=== PATIENT | female | born 1965 | race Caucasian/White ===

== ENCOUNTER 2018-08-02 09:16 | Outpatient (REF) | payer BC, SELFPAY ==
[2018-08-02 13:51] LABS: HCT 42.4 % (36.0-46.0); HGB 14.2 g/dL (12.0-15.5); Mean Corp. HGB Concentration 33.5 g/dL (32.0-36.0); Mean Corpuscular Hemoglobin 28.9 pg (27.0-33.0); Mean Corpuscular Volume 86.4 fL (80-95); Mean Platelet Volume 12.7 fL (8.0-11.0); Platelet Count 245 x1000/uL (130-400); RBC 4.91 m/cumm (4.00-5.20); RBC Distribution Width 13.9 % (11.7-14.6); White Blood Cell Count 5.74 k/cumm (4.4-10.8)
[2018-08-02 14:03] LABS: ALT 37 U/L (12-78); AST 18 U/L (15-37); Albumin 4.1 g/dL (3.4-5.0); Alkaline Phosphatase 99 U/L (46-116); Anion Gap 10.6 mmol/L (3-11); BUN 16 mg/dL (7-18); Bilirubin, Total 0.4 mg/dL (0.2-1.0); CO2 27.4 mmol/L (21.0-32.0); CREATININE 0.82 mg/dL (0.55-1.02); Calcium 9.1 mg/dL (8.5-10.1); Chloride 103 mmol/L (98-107); Cholesterol 177 mg/dL (50-200); Glucose 100 mg/dL (70-100); HDL Cholesterol 59 mg/dL (40-60); LDL CHOLESTEROL 109 mg/dL (<100); Potassium 3.9 mmol/L (3.5-5.1); Sodium 141 mmol/L (136-145); Total Protein 7.8 g/dL (6.4-8.2); Triglyceride 54 mg/dL (30-150)
== END 2018-08-02 09:36 ==
LOC: NCHCN 09:16
PROVIDERS: Visit Provider Family Medicine
DX: Z00.00 Encounter for general adult medical examination without abnormal findings (principal); Z13.0 Encounter for screening for diseases of the blood and blood-forming organs and certain disorders involving the immune mechanism; Z13.228 Encounter for screening for other metabolic disorders; Z13.220 Encounter for screening for lipoid disorders
CPT/HCPCS: 80053; 80061; 83721; 85027

== ENCOUNTER 2018-09-08 00:35 | Outpatient (CLI) | payer BC, SELFPAY ==
--- NOTE | 2018-09-08 16:09 | DI.MAMMO_ITS ---
SYMPTOM/DIAGNOSIS: SCREENING, Z12.31, FIBROCYSTIC CHANGES, N60.19 MAMMOGRAMS: Mammograms were interpreted according to the usual protocol including computer analysis with CAD system, tomosynthesis and C view imaging. The breasts are of moderate density with fairly symmetrical distribution of fibroglandular tissue. No dominant mass or clumped microcalcification is identified in either breast. The current examination is compared with previous examinations including 03/2016 and there has been no gross interval change in appearance in comparison with the previous studies. CONCLUSION: No specific evidence of malignancy at this time. Routine screening examinations are suggested at yearly intervals in this age group according to the ACS/ACR guidelines. Category 1. Breast density, category B. MQSA ASSESSMENT OF FINDINGS: Negative. Category 1. Patient will receive a letter notifying them of these results. BI-RADS category B. There are scattered areas of fibroglandular density.
== END 2018-09-08 00:55 ==
PROVIDERS: PCP Internal Medicine; Visit Provider Family Medicine
DX: Z12.31 Encounter for screening mammogram for malignant neoplasm of breast (principal); N60.11 Diffuse cystic mastopathy of right breast; N60.12 Diffuse cystic mastopathy of left breast
CPT/HCPCS: 77063; 77067

== ENCOUNTER 2020-09-04 09:04 | Outpatient (REF) | payer OTHER, SELFPAY ==
[2020-09-04 22:21] LABS: ALT 33 U/L (14-59); AST 20 U/L (15-37); Albumin 3.9 g/dL (3.4-5.0); Alkaline Phosphatase 91 U/L (46-116); BUN 18 mg/dL (7-18); Bilirubin, Total 0.3 mg/dL (0.2-1.0); CREATININE 0.78 mg/dL (0.55-1.02); Calcium 9.1 mg/dL (8.5-10.1); Calculated LDL 112 mg/dL (<100); Chloride 103 mmol/L (98-107); Cholesterol 178 mg/dL (<200); Glucose 87 mg/dL (74-106); HDL Cholesterol 49 mg/dL (40-60); Potassium 4.1 mmol/L (3.5-5.1); Sodium 140 mmol/L (136-145); Total Protein 7.4 g/dL (6.4-8.2); Triglyceride 86 mg/dL (<150)
== END 2020-09-04 09:24 ==
LOC: NCHCN 09:04
PROVIDERS: PCP Internal Medicine; Visit Provider Family Medicine
DX: Z00.00 Encounter for general adult medical examination without abnormal findings (principal); Z13.220 Encounter for screening for lipoid disorders; I10 Essential (primary) hypertension
CPT/HCPCS: 80053; 80061

== ENCOUNTER 2020-10-03 01:15 | Outpatient (CLI) | payer OTHER, SELFPAY ==
--- NOTE | 2020-10-03 | DI.MAMMO_ITS ---
EXAM: MG MAMMO SCREENING CLINICAL HISTORY: SCREENING, Z12.31 TECHNIQUE: Bilateral full field digital CC and MLO mammographic images were obtained with 3D tomosyn thesis and utilizing computer aided detection (CAD). COMPARISON: Available for comparison. FINDINGS: Masses/Architectural Distortion: None seen. Microcalcifications: No suspicious pleomorphic-type are seen. Skin Thickening/Nipple Retraction: None. IMPRESSION: 1. No significant interval change with no specific features of malignancy noted. 2. Unless there is more urgent need, screening mammography is recommended, as per [employer] guidelines. BI-RADS Category 1 - Negative Breast Density - Category B - Scattered areas of fibroglandular density A negative radiographic report should not delay biopsy if a dominant or clinically suspicious mass is present. Up to ten percent of cancers are not identified on mammography. A negative report may reinforce clinical impression. Adenosis and dense breasts may obscure an underlying neoplasm. False positive reports average 6 to 10%. Patient will receive a letter notifying them of these results.
== END 2020-10-03 01:35 ==
PROVIDERS: PCP Internal Medicine; Visit Provider Family Medicine
DX: Z12.31 Encounter for screening mammogram for malignant neoplasm of breast (principal)
CPT/HCPCS: 77063; 77067

== ENCOUNTER 2021-10-20 12:37 | Outpatient (REF) | payer OTHER, SELFPAY ==
--- NOTE | 2021-10-20 10:45 | PAPFT_PTH ---
PATIENT: Katey Lima LOC: [facility]#:[id number] AGE/SX: 56/F ROOM: RE10/20/[address]: Tosha Villegas : 1965 BED: DIS: 10/20/2021 SPEC #: [id number] RECD: 10/20/21 18:40 STATUS: RENUKA REQ #: [id number] ARSH: 10/20/21 10:[address]: Tosha Villegas DEPT: [facility] Cytology RECD BY: Zoe Castorena ENTERED: 10/20/21 18:40 SP TYPE: PAPFT OTHR DR: Heron Ray Tissues: 1 - CX/ENDOCX FOR PAP SMEARS Procedures: PAP THIN PREP/UVM Screening HPV DNA PROBE Comments: [id number]
== END 2021-10-20 12:38 | disposition home or self-care (01) ==
LOC: NCHCN 12:37
PROVIDERS: PCP Internal Medicine; Visit Provider Family Medicine
DX: Z12.4 Encounter for screening for malignant neoplasm of cervix (principal); Z11.51 Encounter for screening for human papillomavirus (HPV)
CPT/HCPCS: 88142; 87624

== ENCOUNTER 2021-12-02 19:50 | Outpatient (REF) | payer BC, SELFPAY ==
[2021-12-02 22:17] LABS: Abs Immature Grans 0.02 10^3/uL (0.0-0.06); Absolute Basophil Count 0.05 10^3/uL (0.0-0.2); Absolute Eosinophil Count 0.17 10^3/uL (0.0-0.7); Absolute Lymphocyte Count 1.73 10^3/uL (1.2-3.4); Absolute Monocyte Count 0.48 10^3/uL (0.1-0.8); Absolute Neutrophil Count 4.47 10^3/uL (1.2-6.7); Basophils % 0.7; Eosinophils % 2.5; HGB 14.5 g/dL (11.2-15.7); Immature Grans % 0.3; MCH 28.5 pg (27.0-33.0); MCHC 32.2 % (32.0-36.0); MCV 88.4 fL (80-95); MPV 12.7 fL (8.0-11.0); Monocytes % 6.9; Neutrophils % 64.6; Nucleated RBC 0 %; Platelet Count 225 10^3/uL (130-400); RBC 5.09 10^6/uL (3.93-5.22); RDW 13.2 % (11.7-14.6); RDW-SD 43.4 fL; WBC 6.92 10^3/uL (4.4-10.8)
[2021-12-02 22:50] LABS: ALT 34 U/L (14-59); AST 20 U/L (15-37); Albumin 4.3 g/dL (3.4-5.0); Alkaline Phosphatase 95 U/L (46-116); Anion Gap 12.1 mmol/L (3-11); BUN 11 mg/dL (7-18); Bilirubin, Total 0.3 mg/dL (0.2-1.0); CO2 25.9 mmol/L (21.0-32.0); CREATININE 0.8 mg/dL (0.55-1.02); Calcium 9.4 mg/dL (8.5-10.1); Chloride 104 mmol/L (98-107); Ferritin 100 ng/mL (8-252); Glucose 80 mg/dL (74-106); Potassium 3.9 mmol/L (3.5-5.1); Sodium 142 mmol/L (136-145); TSH (W/Ref FT4) 2.48 uIU/mL (0.36-3.74); Total Protein 7.9 g/dL (6.4-8.2)
[2021-12-02 23:01] LABS: Iron 46 ug/dL (50-170); Total Iron Binding Capacity 298 ug/dL (250-450); Transferrin Sat 15 % (15-50)
== END 2021-12-02 19:51 | disposition home or self-care (01) ==
LOC: NCHCN 19:50
PROVIDERS: PCP Internal Medicine; Visit Provider Nurse Practitioner Family
DX: K30 Functional dyspepsia (principal); R06.83 Snoring; R42 Dizziness and giddiness; G44.209 Tension-type headache, unspecified, not intractable
CPT/HCPCS: 80053; 82728; 83540; 83550; 84443; 85025

== ENCOUNTER 2022-12-10 09:41 | Outpatient (REF) | payer BC, SELFPAY ==
[2022-12-10 15:01] LABS: Anion Gap 6.9 mmol/L (3-11); BUN 16 mg/dL (7-18); CO2 31.1 mmol/L (21.0-32.0); CREATININE 0.8 mg/dL (0.55-1.02); Calcium 9.5 mg/dL (8.5-10.1); Chloride 106 mmol/L (98-107); Estimated GFR 86.42 (mL/min/1.73m2); Glucose 98 mg/dL (74-106); Magnesium 2.1 mg/dL (1.8-2.4); Potassium 4.2 mmol/L (3.5-5.1); Sodium 144 mmol/L (136-145)
[2022-12-10 16:05] LABS: Hemoglobin A1C 5.6 % (<5.7)
[2022-12-10 16:07] LABS: Calculated LDL 109 mg/dL (<100); Cholesterol 173 mg/dL (<200); HDL Cholesterol 56 mg/dL (40-60); Triglyceride 43 mg/dL (<150); Vitamin B12 600 pg/mL (193-986)
== END 2022-12-10 09:42 | disposition home or self-care (01) ==
LOC: NCHCN 09:41
PROVIDERS: PCP Internal Medicine; Visit Provider Family Medicine
DX: Z00.00 Encounter for general adult medical examination without abnormal findings (principal); I10 Essential (primary) hypertension; R42 Dizziness and giddiness; F41.8 Other specified anxiety disorders; E55.9 Vitamin D deficiency, unspecified; E66.8 Other obesity
CPT/HCPCS: 80048; 80061; 82607; 83036; 83735

== ENCOUNTER 2022-12-11 00:22 | Outpatient (CLI) | payer BC, SELFPAY ==
--- NOTE | 2022-12-11 | DI.MAMMO_ITS ---
Exam(s) MAMMO SCREENING EXAM: MAMMO SCREENING CLINICAL HISTORY: SCREENING, Z12.31 TECHNIQUE: Bilateral full field digital CC and MLO mammographic images were obtained with 3D tomosyn thesis and utilizing computer aided detection (CAD). COMPARISON: Available for comparison. FINDINGS: Masses/Architectural Distortion: There is a new opacity in the lower inner quadrant of the left breas t. It measures 8.5 mm. There are no areas of architectural distortion. Microcalcifications: No suspicious pleomorphic-type are seen. Skin Thickening/Nipple Retraction: None. IMPRESSION: 1. New 8.5 mm rounds density in the lower inner quadrant of the left breast. 2. A spot compression views requested for further evaluation. Limited left breast ultrasound should be obtained at that time. BI-RADS Category 0 - Assessment Incomplete: Need additional imaging evaluation Breast Density - Category B - Scattered areas of fibroglandular density Breast density category C or D implies that the patient has dense breast tissue. Dense breast tissue is very common and is not abnormal but dense breast tissue can make it harder to find cancer on a ma mmogram. Also, dense breast tissue may increase their breast cancer risk. This information about the result of the mammogram report was provided to the patient to raise their awareness. Use this report when you speak with the patient about their risks for breast cancer, which includes their family hist ory. At that time, you may recommend for more screening tests (Ultrasound or MRI) as they might be us eful based on their risk. A negative radiographic report should not delay biopsy if a dominant or clinically suspicious mass is present. Up to ten percent of cancers are not identified on mammography. A negative report may reinforce clinical impression. Adenosis and dense breasts may obscure an underlying neoplasm. False positive reports average 6 to 10%. Patient will receive a letter notifying them of these results.
== END 2022-12-11 00:42 ==
LOC: DI 00:22
PROVIDERS: PCP Internal Medicine; Visit Provider Family Medicine
DX: Z12.31 Encounter for screening mammogram for malignant neoplasm of breast (principal); R92.8 Other abnormal and inconclusive findings on diagnostic imaging of breast
CPT/HCPCS: 77063; 77067

== ENCOUNTER 2023-03-04 13:29 | Outpatient (REF) | payer BC, SELFPAY ==
[2023-03-04 21:10] LABS: HCT 43.8 % (36.0-46.0); HGB 14.4 g/dL (11.2-15.7); MCH 28.6 pg (27.0-33.0); MCHC 32.9 % (32.0-36.0); MCV 87 fL (80-95); Platelet Count 280 10^3/uL (130-400); RBC 5.04 10^6/uL (3.93-5.22); RDW 14.1 % (11.7-14.6); RDW-SD 44.8 fL; WBC 8.76 10^3/uL (4.4-10.8)
[2023-03-04 21:23] LABS: ALT 36 U/L (14-59); AST 21 U/L (15-37); Albumin 4.1 g/dL (3.4-5.0); Alkaline Phosphatase 95 U/L (46-116); Anion Gap 9.1 mmol/L (3-11); BUN 12 mg/dL (7-18); Bilirubin, Total 0.4 mg/dL (0.2-1.0); CO2 27.9 mmol/L (21.0-32.0); CREATININE 0.7 mg/dL (0.55-1.02); Calcium 9.5 mg/dL (8.5-10.1); Chloride 103 mmol/L (98-107); Estimated GFR 101.44 (mL/min/1.73m2); Glucose 86 mg/dL (74-106); Sodium 140 mmol/L (136-145); Total Protein 7.6 g/dL (6.4-8.2)
== END 2023-03-04 13:30 | disposition home or self-care (01) ==
LOC: NCHCN 13:29
PROVIDERS: PCP Internal Medicine; Visit Provider Nurse Practitioner Family
DX: R10.32 Left lower quadrant pain (principal)
CPT/HCPCS: 80053; 85027

== ENCOUNTER 2024-02-07 08:24 | Outpatient (REF) | payer BC, SELFPAY ==
[2024-02-07 15:14] LABS: ALT 34 U/L (14-59); AST 23 U/L (15-37); Albumin 3.8 g/dL (3.4-5.0); Alkaline Phosphatase 97 U/L (46-116); Anion Gap 8.1 mmol/L (3-11); BUN 17 mg/dL (7-18); Bilirubin, Total 0.5 mg/dL (0.2-1.0); CO2 29.9 mmol/L (21.0-32.0); CREATININE 0.8 mg/dL (0.55-1.02); Calculated LDL 120 mg/dL (<100); Chloride 104 mmol/L (98-107); Cholesterol 191 mg/dL (<200); Estimated GFR 85.89 (mL/min/1.73m2); Glucose 99 mg/dL (74-106); HDL Cholesterol 54 mg/dL (40-60); Potassium 4.5 mmol/L (3.5-5.1); Sodium 142 mmol/L (136-145); Total Protein 7.1 g/dL (6.4-8.2); Triglyceride 88 mg/dL (<150)
[2024-02-07 15:34] LABS: Vitamin D 25 Total 30.5 ng/mL (30-100)
== END 2024-02-07 08:25 | disposition home or self-care (01) ==
LOC: NCHCN 08:24
PROVIDERS: PCP Internal Medicine; Visit Provider Family Medicine
DX: I10 Essential (primary) hypertension (principal); Z00.00 Encounter for general adult medical examination without abnormal findings; Z13.220 Encounter for screening for lipoid disorders
CPT/HCPCS: 80053; 80061; 82306

== ENCOUNTER 2024-09-22 15:08 | Outpatient (REF) | payer BC, SELFPAY ==
--- OUTSIDE RECORDS SUMMARY | 2024-09-22 15:09 | XMS_ITS | Encounter Summary ---
Author Organization [facility] Address [address] [place] [address] Care Team Providers Care Cattle Alley Worker Name Role Phone Tosha Villegas MD Primary Care Provider [phone] Reason for Visit * Reason Comments Thyroid Problem * Consult (Routine/Next Available) - Specialty Report Received Specialty Diagnoses / Procedures Referred By [facility] Referred To Contact Otolaryngology Diagnoses Thyroid nodule Kimber Lackey MD [address] [place] [address] [place] [phone] [facility] [address] [place] [id number] Referral ID Status Reason Start Date Expiration Date Visits Requested Visits Authorized [id number] Specialty Report Received Specialty Services Required 3 1 1 Encounter Details Date Type Department Care Team (Late st Contact Info) Description 11/30/2023 15:40 EST [facility] [address] [place], [place] [id number] Topher Cuello MD [address] [place] [address] [address] [place] [address] Thyroid nodule (Primary Dx) Social History Tobacco Use Types Packs/Day Years Used Date Smoking Tobacco: Former Cigarettes Tobacco Cessation:Counseling Given: Not Answered Alcohol Use Standard Drinks/Week Comments Yes 2 (1 standard drink = 0.6 oz pur e alcohol) Sex and Gender Information Value Date Recorded Sex Assigned at Not on file Gender Identity Female 09/24/2023 13:55 EST Sexual Orientation Not on file documented as of this encounter Last Filed Vital Signs Vital Sign Reading Time Taken Comments Blood Pressure - - Pulse - - Temperature - - Respiratory Rate - - Oxygen Saturation - - Inhaled Oxygen Concentration - - Weight 86.2 kg (190 lb) 11/30/2023 1553 EST Height 151.1 cm (4' 11.5) 11/30/2023 1553 EST Body Mass Index 37.73 11/30/2023 1553 EST documented in this encounter Progress Notes * Topher Cuello MD - 11/30/2023 1540 EST Images from the original note were not included. Attached media from the original note were not included. Procedure: Ultrasound-guided FNA of left thyroid nodule Indications: 58-year-old female with a incidental finding of a left 1.8 cm category 3 isoechoic thyroid nodule Informed consent:I explained the procedure, as well as benefits of the procedure, alternative treatments, and consequences of no treatment to patient. Verbal consent for the procedure was obtained. A pre-procedure verification was conducted prior to the procedure. Final verification/timeout immediately prior to procedure has been conducted by the attending provider, including all members of the procedural team as appropriate to their involvement in the procedure. The patient's identity, procedure, and when applicable the: side/site, patient position, availability of special equipment or special requirements was verbally confirmed prior to the procedure. Procedure: Prior ultrasounds were read and reviewed. The patient is placed in a recumbent position with the neck extended. The skin was prepped with alcohol. Ultrasound was performed the left thyroidnodules identified. The skin was marked. Local anesthesia lidocaine with epinephrine 0.2 mL was injected. Using ultrasound guidance fine-needle aspirate biopsy was performed x 3 with a 23- gauge needle. Specimens were sent to cytology and 1 was saved for possible molecular testing. The patient had some postprocedural swelling treated with cold pack and pressure. She otherwise tolerated the procedure well. Patient follow-up in 1 week for FNA results. documented in this encounter Plan of Treatment Not on file documented as of this encounter Procedures Procedure Name Priority Date/Time Associated Diagnosis Comments NON SONOGRAM TECHNICIAN/FNA CYTOLOGY Routine 11/30/2023 16:05 EST Thyroid nodule documented in this encounter Results * NON SONOGRAM TECHNICIAN/FNA CYTOLOGY (11/30/2023 16:05 EST) Note to Patient The following pathology results have been interpreted by your pathologist and may be available to you before your health provider has had the opportunity to review them. Please allow time for your provider to receive these results and explore management options, if applicable. 12/01/2023 14:13 [facility] Final Diagnosis A. THYROID, LEFT, FINE NEEDLE ASPIRATION: - Nondiagnostic; see comment. 12/01/2023 14:13 [facility] Diagnosis Comment Predominantly blood with rare follicular cells and rare colloid. 12/01/2023 14:13 [facility] Attestation By the signature below, the attending physician certifies that they have personally conducted a gross and/or microscopic examination of the described specimens and rendered or confirmed the above diagnosis. 12/01/2023 14:13 [facility] at 1413 Clinical History left thyroid 12/01/2023 14:13 [facility] Gross Description A. 2 fixed prepared slides, 2 air dried prepared slides, and 1 tube of CytoLyt were received and processed by selective cellular enhancement technique. ThyroSeq tube received - hold for additional testing. 12/01/2023 14:13 [facility] Performing Lab [facility] 12/01/2023 14:13 [facility] Scanned Images 12/01/2023 14:13 [facility] Fine Needle Aspirate STRUCTURE OF LEFT LOBE OF THYROID GLAND / Unknown 11/30/2023 16:05 EST 11/30/2023 16:06 EST Topher Cuello MD PATHOLOGY ORDERABLES [facility] [address] [place] [address] documented in this encounter Visit Diagnoses Diagnosis Thyroid nodule- Primary Nontoxic uninodular goiter documented in this encounter Care Teams Cattle Alley Worker Relationship Specialty Start Date End Date Tosha Villegas MD [address] [place] [phone] PCP - General Family Medicine - Primary Care 09/24/23 documented as of this encounter
--- OUTSIDE RECORDS SUMMARY | 2024-09-22 15:09 | XMS_ITS | Encounter Summary ---
Author Organization [facility] Address [address] [place] [address] Care Team Providers Care Mobile Engineer Name Role Phone Tosha Villegas MD Primary Care Provider [phone] Encounter Details Date Type Department Care Team (Late st Contact Info) Description 09/27/2023 16:20 EST Phlebotomy Only [facility] - Outpatient Phlebotomy Drawing [address] [place] [address] [facility], [facility] Thyroid nodule Social History Tobacco Use Types Packs/Day Years Used Date Smoking Tobacco: Never Assessed Sex and Gender Information Value Date Recorded Sex Assigned at Not on file Gender Identity Female 09/24/2023 13:55 EST Sexual Orientation Not on file documented as of this encounter Plan of Treatment Not on file documented as of this encounter Procedures Procedure Name Priority Date/Time Associated Diagnosis Comments THYROID CASCADE Routine 09/27/2023 16:27 EST Thyroid nodule documented in this encounter Results * THYROID CASCADE (09/27/2023 16:27 EST) TSH 2.86 0.47 - 4.68 mIU/L 09/27/2023 18:35 EST [facility] Blood VENOUS BLOOD / Unknown Venipuncture / Unknown 09/27/2023 16:27 EST 09/27/2023 17:39 EST Narrative [facility] - 09/27/2023 18:35 EST NOTE: The results of this assay can be falsely lowered due to the consumption of Biotin. Kimber Tierney MD CHEMISTRY & BL OOD GAS ORDERABLES [facility] [address] [place] [address] documented in this encounter Visit Diagnoses Diagnosis Thyroid nodule Nontoxic uninodular goiter documented in this encounter Care Teams Mobile Engineer Relationship Specialty Start Date End Date Tosha Villegas MD [address] [place] [phone] PCP - General Family Medicine - Primary Care 09/24/23 documented as of this encounter
--- OUTSIDE RECORDS SUMMARY | 2024-09-22 15:09 | XMS_ITS | Encounter Summary ---
Author Organization [facility] Address [address] [place] [address] Care Team Providers Care Infrastructure Manager Name Role Phone Tosha Villegas MD Primary Care Provider [phone] Reason for Visit * Reason Comments Follow-up Encounter Details Date Type Department Care Team (Late st Contact Info) Description 12/07/2023 10:10 EST Office Visit [facility] [address] [place] [address] Topher Cuello MD [address] [place] [address] [address] [place] [address] Thyroid nodule (Primary Dx) Social History Tobacco Use Types Packs/Day Years Used Date Smoking Tobacco: Former Cigarettes Alcohol Use Standard Drinks/Week Comments Yes 2 (1 standard drink = 0.6 oz pur e alcohol) Sex and Gender Information Value Date Recorded Sex Assigned at Not on file Gender Identity Female 09/24/2023 13:55 EST Sexual Orientation Not on file documented as of this encounter Progress Notes * Topher Cuello MD - 12/07/2023 1010 EST Images from the original note were not included. REASON FOR VISIT: Follow-up left 1.8 cm category 3 thyroid nodule status post ultrasound-guided FNA SUBJECTIVE: Patient had bruising and swelling after the finding labs or biopsy but this is improving slowly. OBJECTIVE: Final Diagnosis A. THYROID, LEFT, FINE NEEDLE ASPIRATION: - Nondiagnostic; see comment. Diagnosis Comment Predominantly blood with rare follicular cells and rare colloid. ASSESSMENT: Left thyroid nodule status post ultrasound-guided FNA nondiagnostic pathology PLAN: Will schedule patient for repeat ultrasound-guided FNA with a smaller 25- gauge needle. documented in this encounter Plan of Treatment Not on file documented as of this encounter Visit Diagnoses Diagnosis Thyroid nodule- Primary Nontoxic uninodular goiter documented in this encounter Care Teams Infrastructure Manager Relationship Specialty Start Date End Date Tosha Villegas MD [address] [place] [phone] PCP - General Family Medicine - Primary Care 09/24/23 documented as of this encounter
--- OUTSIDE RECORDS SUMMARY | 2024-09-22 15:09 | XMS_ITS | Clinical Summary ---
Author Organization [facility] Address [address] [place] [address] Care Team Providers Care Teaching Young Name Role Phone Tosha Villegas MD Primary Care Provider [phone] Allergies Active Allergy Reactions Criticality Noted Date Comments Antihistamines - Alkylamine 09/24/20 Sulfamethoxazole-Trimethoprim 2022 Clarithromycin 09/24/2023 Cephalexin 09/24/2023 Sulfa (Sulfonamide Antibiotics) 09/15 Medications Medication Sig Dispensed Refills Start Date End Date Status benazepriL (LOTENSIN) 10 mg tablet Take 1 Tablet by mouth daily. 07/27/2023 Active estradioL (VAGIFEM) 10 mcg vaginal tablet INSERT 1 TABLET VAGINALLY 2 TIMES A WEEK 06/01/2023 Active OMEPRAZOLE ORAL Take 20 mg by mouth. Active aspirin (ASPIR-81 ORAL) Take by mouth. Active ibuprofen (MOTRIN) 200 mg tablet Take 1 Tablet by mouth every 6 hours. Active Surgical History Surgery Date Site/Laterality Comments TONSILLECTOMY Medical History Medical History Date Comments Heartburn Hypertension Family History Medical History Relation Comments Diabetes Maternal Grandmother Diabetes Mother Relation Status Comments Maternal Grandmother Mother Social History Tobacco Use Types Packs/Day Years Used Date Smoking Tobacco: Former Cigarettes Tobacco Cessation:Counseling Given: Not Answered Alcohol Use Standard Drinks/Week Comments Yes 2 (1 standard drink = 0.6 oz pur e alcohol) Sex and Gender Information Value Date Recorded Sex Assigned at Not on file Gender Identity Female 09/24/2023 13:55 EST Sexual Orientation Not on file Obstetrics History Last Filed Vital Signs Vital Sign Reading Time Taken Comments Blood Pressure 126/74 09/24/2023 1408 EST Pulse - - Temperature - - Respiratory Rate - - Oxygen Saturation - - Inhaled Oxygen Concentration - - Weight 86.2 kg (190 lb) 11/30/2023 1553 EST Height 151.1 cm (4' 11.5) 11/30/2023 1553 EST Body Mass Index 37.73 11/30/2023 1553 EST Plan of Treatment Health Maintenance Due Date Last Done Comments Hepatitis C Screen 1965 Hepatitis B Vaccine (1 of 3 - 19+ 3-dose series) 05/10 COVID-19 Vaccine (2023- season) 2024 Care Teams Teaching Young Relationship Specialty Start Date End Date Tosha Villegas MD [address] [place] [phone] PCP - General Family Medicine - Primary Care 09/24/23
--- OUTSIDE RECORDS SUMMARY | 2024-09-22 15:09 | XMS_ITS | Encounter Summary ---
Author Organization [facility] Address [address] [place] [address] Care Team Providers Care Racebook Writer Name Role Phone Tosha Villegas MD Primary Care Provider [phone] Encounter Details Date Type Department Care Team (Latest Contact Info) Description 12/07/2023 Travel Social History Tobacco Use Types Packs/Day Years [...] documented as of this encounter Visit Diagnoses Not on filedocumented in this encounter Care Teams Racebook Writer Relationship Specialty Start Date End Date Tosha Villegas MD [address] [place] [phone] PCP - General Family Medicine - Primary Care 09/24/23 documented as of this encounter
--- OUTSIDE RECORDS SUMMARY | 2024-09-22 15:09 | XMS_ITS | Referral Summary ---
Author Organization [facility] Address [address] [place] [address] Care Team Providers Care High Frequency Mill Operator Name Role Phone Tosha Villegas MD Primary Care Provider [phone] Allergies Active Allergy Reactions Criticality Noted Date [...] Tablet by mouth every 6 hours. Active Social History Tobacco Use Types Packs/Day Years Used Date Smoking Tobacco: Former Cigarettes Tobacco Cessation:Counseling Given: Not Answered Alcohol Use Standard Drinks/Week Comments Yes 2 (1 standard drink = 0.6 oz pur e alcohol) Sex and Gender Information Value Date Recorded Sex Assigned at Not on file Gender Identity Female 09/24/2023 13:55 EST Sexual Orientation Not on file Last Filed Vital Signs Vital Sign Reading Time Taken Comments Blood Pressure 126/74 09/24/2023 1408 EST Pulse - - Temperature - - Respiratory Rate - - Oxygen Saturation - - Inhaled Oxygen Concentration - - Weight 86.2 kg (190 lb) 11/30/2023 1553 EST Height 151.1 cm (4' 11.5) 11/30/2023 1553 EST Body Mass Index 37.73 11/30/2023 1553 EST Plan of Treatment Not on file Care Teams High Frequency Mill Operator Relationship Specialty Start Date End Date Tosha Villegas MD [address] [place] [address] PCP - General Family Medicine - Primary Care 09/24/23
--- OUTSIDE RECORDS SUMMARY | 2024-09-22 15:09 | XMS_ITS | Encounter Summary ---
Author Organization [facility] Address [address] [place] [address] Care Team Providers Care Web Architect Name Role Phone Tosha Villegas MD Primary Care Provider [phone] Reason for Referral * Consult (Routine/Next Available) - Specialty Report Received Specialty Diagnoses / Procedures Referred By [facility] Referred To Contact Otolaryngology Diagnoses Thyroid nodule Kimber Lackey MD [address] [place] [phone] [facility] [address] [place] [address] Referral ID Status Reason Start Date Expiration Date Visits Requested Visits Authorized [id number] Specialty Report Received Specialty Services Required 3 1 1 Question Answer Scheduling Comments (optional ? describe specific scheduling needs if applicable): Right 1.8 cm thyroid nodule. Please collect sample to thyrosuq in case is needed. Reason for Request: Other Please specify: Thyroid nodule R 1.8 cm * Radiology Services (Routine/Next Available) - Authorization Not Required Specialty Diagnoses / Procedures [facility] Referred To Contact Diagnoses Thyroid nodule Procedures US THYROID/NECK Kimber Lackey MD [address] [place] [address] [facility] Referral ID Status Reason Start Date Expiration Date Visits Requested Visits Authorized [id number] Authorization Not Required 3 1 1 Reason for Visit * Reason Comments New Patient Visit Thyroid Nodule Encounter Details Date Type Department Care Team (Jason st Contact Info) Description 09/24/2023 14:00 EST Office Visit [facility] Endocrinology [address] [place] [address] Kimber Lackey MD [address] [place] [phone] Thyroid nodule (Primary Dx) Social History Tobacco [...] - Inhaled Oxygen Concentration - - Weight 87.1 kg (192 lb) 09/24/2023 1408 EST Height 151.1 cm (4' 11.5) 09/24/2023 1408 EST Body Mass Index 38.13 09/24/2023 1408 EST documented in this encounter Progress Notes * Janina Woo MA - 09/24/2023 1400 EST New patient referral for Thyroid * Kimber Lackey MD - 09/24/2023 1400 EST CC: Ms. Katey Lima is a 58 y.o. female, who was referred to endocrinology for evaluation of thyroid nodules HPI: 58 yo patient with history of HTN recently diagnosed who was incidentally found to have a thyroid nodule in a CT scan of the chest. Thyroid ultrasound showed a 1.8 cm isoechoic thyroid nodule TR3 in the left lobe. She has not noticed any change in the size of the neck, neck discomfort, dysphagia, dysphonia, or dyspnea. No history of XRT to the neck and no family history of thyroid cancer Past Medical History/Problem List: There is no problem list on file for this patient. HTN Past Sugical History: Tonsilectomy Family History: Mat GM Type 2 diabetes Mother DM with ESRD and HD sudden Father brain aneurism Daughter uterine cancer Social History: , Works at [employer]. High stress. Two adult children. Cig smoking from age 17 to 39 1ppd ObGyn History: . Menopause age 53. No HRT except vaginl estrogen Review of Systems: Positive for hot flashes, night sweats, fragmented. Medications: Current Outpatient Medications on File Prior to Visit Medication Sig Dispense Refill ??? aspirin (ASPIR-81 ORAL) Take by mouth. ??? benazepriL (LOTENSIN) 10 mg tablet Take 1 Tablet by mouth daily. ??? estradioL (VAGIFEM) 10 mcg vaginal tablet INSERT 1 TABLET VAGINALLY 2 TIMES A WEEK ??? ibuprofen (MOTRIN) 200 mg tablet Take 1 Tablet by mouth every 6 hours. ??? OMEPRAZOLE ORAL Take 20 mg by mouth. No current facility-administered medications on file prior to visit. Allergies: Allergies Allergen Reactions ??? Antihistamines - Alkylamine ??? Bactrim [Sulfamethoxazole-Trimethoprim] ??? Biaxin [Clarithromycin] ??? Drug Ingredient [Cephalexin] ??? Sulfa (Sulfonamide Antibiotics) Physical Exam: Patient Vitals for the past 24 hrs: BP Height Weight 09/24/23 1408 126/74 151.1 cm (59.5) 87.1 kg (192 lb) Body mass index is 38.13 kg/m??. General: well appearing patient in no acute distress. Skin: No skin rash, HEENT: No oral or oropharyngeal lesions Neck: supple, no lymphadenopathies or masses, no carotid bruits. Thyroid not enlarged, no palpable thyroid nodules. Lungs: Clear to auscultation Heart: Regular rate and rhythm, No murmurs, rubs or gallops. Extremities: no tremors. Neuro: Alert and oriented x 3. Speech is normal. No focal findings. Normal gait and station. Lab and Imaging Results: TSH not available 06/2023: Thyroid ultrasound: 1.8x1.1x1.3 isoechoic nodule, well defined borders No microcalcifications. Assessment and Plan: Thyroid nodule: TR3 -low suspicion with 5-10% risk of malignancy. We will check TSH to decide on FNA. Add: TSH 2.86. Will refer to ENT for FNA documented in this encounter Plan of Treatment Scheduled Orders Name Type Priority Associated Diagnoses Orde r Schedule US THYROID/NECK Imaging Routine Thyroid nodule Expected: 08/24/2024, Expires: 09/24/2024 Scheduled Referrals Name Type Priority Associated Diagnoses Order Schedule AMB CONS/FOLLOW UP ENT Outpatient Referral Routine/Next Available Thyroid nodule Expected: 10/13/2023 (Approximate), Expires: 09/29/2024 documented as of this encounter Results * THYROID CASCADE (09/27/2023 16:27 EST) TSH 2.86 0.47 - 4.68 mIU/L 09/27/2023 18:35 EST [facility] Blood VENOUS BLOOD / Unknown Venipuncture / Unknown 09/27/2023 16:27 EST 09/27/2023 17:39 EST Narrative [facility] - 09/27/2023 18:35 EST NOTE: The results of this assay can be falsely lowered due to the consumption of Biotin. Kimber Tierney MD CHEMISTRY & BL OOD GAS ORDERABLES [facility] [address] [place] [address] documented in this encounter Visit Diagnoses Diagnosis Thyroid nodule- Primary Nontoxic uninodular goiter documented in this encounter Historical Medications * This list may reflect changes made after this encounter. Medication Sig Dispensed Refills Start Date End Date ibuprofen (MOTRIN) 200 mg tablet Take 1 Tablet by mouth every 6 hours. aspirin (ASPIR-81 ORAL) Take by mouth. OMEPRAZOLE ORAL Take 20 mg by mouth. estradioL (VAGIFEM) 10 mcg vaginal tablet INSERT 1 TABLET VAGINALLY 2 TIMES A WEEK 06/01/2023 benazepriL (LOTENSIN) 10 mg tablet Take 1 Tablet by mouth daily. 07/27/2023 added in this encounter Care Teams Web Architect Relationship Specialty Start Date End Date Tosha Villegas MD [address] [place] [address] PCP - General Family Medicine - Primary Care 09/24/23 documented as of this encounter
--- OUTSIDE RECORDS SUMMARY | 2024-09-22 15:09 | XMS_ITS | Encounter Summary ---
Author Organization [facility] Address [address] [place] [address] Care Team Providers Care Dianetic Counselor Name Role Phone Unavailable Primary Care Provider Unavailabl e Encounter Details Date Type Department Care Team (Late st Contact Info) Description 03/13/2016 Results Only [facility] [phone] Albaro Villegas MD [address] [place] [address] Social History Tobacco Use Types Packs/Day Years Used Date Smoking Tobacco: Never Assessed Sex and Gender Information Value Date Recorded Sex Assigned at Not on file Gender Identity Female 09/24/2023 13:55 EST Sexual Orientation Not on file documented as of this encounter Plan of Treatment Not on file documented as of this encounter Procedures Procedure Name Priority Date/Time Associated Diagnosis Comments PAP TEST- RESULT ONLY Routine 03/13/2016 0:00 EDT documented in this encounter Results * PAP TEST- RESULT ONLY (03/13/2016 0:00 EDT) Pathology Report: CYTOPATHOLOGY REPORT Reports generated via electronic interface contain original data; however they are lacking the format of the original report. Caution should be taken when reading/interpreti ng unformatted reports. Name: ? KATEY LIMA Vilma ? Accession #: ? [id number] ? : ? 1965 (Age: 50) ??F ?Collect Date: ? 03/13/2016 ? Location: ? [facility] ? Receive Date: ? 03/17/2016 ? Provider: ALBARO VILLEGAS MD Copy to: ? Final Report SPECIMEN ADEQUACY ? Satisfactory for Evaluation - transformation zone component absent - scant squamous epithelial component secondary to excessive blood - obscuring contamination, possibly lubricant GENERAL CATEGORIZATION ? Negative for Intraepithelial Lesion or Malignancy ?? Hormonal/Contracep tive status: None Specimen/Source: ??Pap Test, Vagina/Cervix, ThinPrep Imaging System with manual evaluation Document reviewed and electronically signed by: ? CELIA Villarreal(ASCP) ? Report ??Date: 03/27/2016 10:57 HPV with Pap Test ? Date Ordered: ? 03/27/2016 ? Status: ?? Signed Out ?Date Complete: ? 03/31/2016 ? By: ??System Interface ? Date Reported: ? 03/31/2016 ? Interpretation RESULT: Negative for HPV. No E6 or E7 mRNA is detected from HPV types 16,18,31,33,35, 39,45,51,52,56,58, 59,66, and 68 by finisher hot strip mediated amplification. Comments Document reviewed and electronically signed by: ? System Interface ? Report date: 03/31/2016 By the signature above, the attending physician certifies that he/she has personally conducted a gross and/or microscopic examination of the described specimens and rendered or confirmed the above diagnosis. End of Report [facility] 03/13/2016 03/17/2016 Albaro Villegsa MD PATHOLOGY ORDERABLES [facility] [address] [place] [address] documented in this encounter Visit Diagnoses Not on filedocumented in this encounter
[2024-09-22 15:30] LABS: ESR 24 mm/hr (0-30)
[2024-09-22 15:50] LABS: ALT 52 U/L (14-59); AST 32 U/L (15-37); Albumin 3.9 g/dL (3.4-5.0); Alkaline Phosphatase 96 U/L (46-116); Anion Gap 9.9 mmol/L (3-11); BUN 13 mg/dL (7-18); Bilirubin, Total 0.36 mg/dL (0.2-1.0); C-Reactive Protein 0.98 mg/dL (<or=0.5); CO2 29.1 mmol/L (21.0-32.0); CREATININE 0.8 mg/dL (0.55-1.02); Calcium 9.1 mg/dL (8.5-10.1); Chloride 108 mmol/L (98-107); Estimated GFR 85.35 (mL/min/1.73m2); Glucose 90 mg/dL (74-106); Potassium 4.1 mmol/L (3.5-5.1); Sodium 147 mmol/L (136-145); Total Protein 7.4 g/dL (6.4-8.2)
[2024-09-25 11:20] LABS: Lyme Ab w Rflx to Lyme Confirm Negative (Negative)
[2024-09-25 21:47] LABS: Anaplasma phagocytophilum Negative (Negative); B. miyamotoi PCR Negative (Negative); Babesia divergens/MO-1 Negative (Negative); Babesia duncani Negative (Negative); Babesia microti Negative (Negative); Ehrlichia chaffeensis Negative (Negative); Ehrlichia ewingii/canis Negative (Negative); Ehrlichia muris eauclairensis Negative (Negative)
== END 2024-09-22 15:09 | disposition home or self-care (01) ==
LOC: NCHCN 15:08
PROVIDERS: PCP Internal Medicine; Visit Provider Family Medicine
DX: R60.9 Edema, unspecified (principal)
CPT/HCPCS: 80053; 85652; 87798; 86140; 86618

== ENCOUNTER 2025-04-02 08:57 | Outpatient (REF) | payer BC, SELFPAY ==
--- NOTE | 2025-04-02 08:45 | ENDOMET_PTH ---
PATIENT: Katey Lima LOC: [facility] U#:[id number] AGE/SX: 59/F ROOM: RE04/02/[address]: Aranza Briones DO : 1965 BED: DIS: 04/02/2025 SPEC #: [id number] RECD: 04/02/25 12:25 STATUS: RENUKA REQ #: [id number] ARSH: 04/02/25 08:[address]: Aranza Briones DEPT: Surgical Specimen RECD BY: Zoe Castorena ENTERED: 04/02/25 12:26 SP TYPE: Endomet OTHR DR: Tohsa Villegas Tissues: 1 - ENDOMETRIUM BX/CURRETTE 2 - ENDOCERVICAL BX/CURRETTE Procedures: GROSS AND MICRO LEVEL 4 Comments: [id number]
== END 2025-04-02 08:58 | disposition home or self-care (01) ==
LOC: LBN 08:57
PROVIDERS: PCP Family Medicine; Visit Provider Obstetrics & Gynecology
DX: N84.1 Polyp of cervix uteri (principal)
CPT/HCPCS: 88305

== ENCOUNTER 2025-06-22 16:15 | Outpatient (REF) | payer BC, SELFPAY ==
[2025-06-22 14:35] LABS: Abs Immature Grans 0.01 10^3/uL (0.0-0.06); HCT 40.0 % (36.0-46.0); HGB 13.3 g/dL (11.2-15.7); Immature Grans % 0.2 %; MCH 28.7 pg (27.0-33.0); MCHC 33.3 % (32.0-36.0); MCV 86 fL (80-95); MPV 12.5 fL (8.0-11.0); Platelet Count 219 10^3/uL (130-400); RBC 4.64 10^6/uL (3.93-5.22); RDW 13.6 % (11.7-14.6); RDW-SD 42.4 fL; WBC 6.40 10^3/uL (4.4-10.8)
[2025-06-22 14:48] LABS: ALT 34 U/L (14-59); AST 24 U/L (15-37); Albumin 3.5 g/dL (3.4-5.0); Alkaline Phosphatase 84 U/L (46-116); Anion Gap 7.4 mmol/L (3-11); BUN 15 mg/dL (7-18); Bilirubin, Total 0.3 mg/dL (0.2-1.0); C-Reactive Protein 1.06 mg/dL (<or=0.5); CO2 27.6 mmol/L (21.0-32.0); Calcium 8.7 mg/dL (8.5-10.1); Chloride 107 mmol/L (98-107); Estimated GFR 99.57 (mL/min/1.73m2); Glucose 92 mg/dL (74-106); Potassium 3.9 mmol/L (3.5-5.1); Sodium 142 mmol/L (136-145); Total Protein 6.5 g/dL (6.4-8.2)
[2025-06-25 10:56] LABS: CA 125 13 U/mL (<30)
== END 2025-06-22 16:16 | disposition home or self-care (01) ==
LOC: NCHCN 16:15
PROVIDERS: PCP Family Medicine; Visit Provider Family Medicine
DX: R10.9 Unspecified abdominal pain (principal); N95.0 Postmenopausal bleeding
CPT/HCPCS: 80053; 86304; 85025; 86140

== ENCOUNTER 2025-08-02 04:28 | Outpatient (CLI) | payer BC, SELFPAY ==
[2025-08-02 07:58] LABS: Abs Immature Grans 0.01 10^3/uL (0.0-0.06); HCT 41.5 % (36.0-46.0); HGB 13.8 g/dL (11.2-15.7); Immature Grans % 0.1 %; MCH 28.3 pg (27.0-33.0); MCHC 33.3 % (32.0-36.0); MCV 85 fL (80-95); MPV 10.6 fL (8.0-11.0); Platelet Count 271 10^3/uL (130-400); RBC 4.88 10^6/uL (3.93-5.22); RDW 13.8 % (11.7-14.6); RDW-SD 42.8 fL; WBC 7.77 10^3/uL (4.4-10.8)
== END 2025-08-02 04:29 | disposition home or self-care (01) ==
LOC: LBO 04:28
PROVIDERS: PCP Family Medicine; Visit Provider Obstetrics & Gynecology
DX: Z01.818 Encounter for other preprocedural examination (principal)
CPT/HCPCS: 36415; 86850; 86900; 86901; 85025

== ENCOUNTER 2025-08-08 10:27 | Day surgery (SDC) | payer BC, SELFPAY ==
--- NOTE | 2025-08-08 08:16 | W.ANESPRE ---
General Info Date of Service Date Performed: 08/08/25 Height: 4 ft 11.5 in Weight: 83.915 kg Body Mass Index (BMI): 36.7 Surgical Procedure: Operation Date: 08/08/25 12:10 Proposed Procedure Side Surgeon p Dilation & Curettage with Hysteroscopy Aranza Briones DO Meds Allergies and Home Medications Allergies Allergy/AdvReac Type Severity Reaction Status Date / Time clarithromycin (From Biaxin) Allergy Mild Other (See Verified 08/08/25 11:02 Comment) sulfadiazine Allergy Mild HIVES Verified 08/08/25 11:02 sulfamethoxazole (From Allergy Mild RASH Verified 08/08/25 11:02 Bactrim) trimethoprim (From Bactrim) Allergy Mild RASH Verified 08/08/25 11:02 cephalexin (From Keflex) AdvReac Mild NAUSEA Verified 08/08/25 11:02 Home Medication ?Medication ?Instructions ?Recorded aspirin 81 mg tablet,delayed 81 mg PO DAILY 12/06/24 release (Adult Aspirin Regimen) Held on 08/06/25. Instructions: Pt Stopped/Never Started omeprazole 20 mg capsule,delayed 20 mg PO DAILY 12/06/24 release benazepril 10 mg tablet 10 mg PO DAILY 12/20/24 ibuprofen 200 mg tablet 200 mg PO Q6H PRN 12/20/24 Current Visit Medications: Current Medications Generic Name Dose Route Start Last Admin Trade Name Freq PRN Reason Stop Dose Admin Ringer's Solution 1,000 mls @ 125 mls/hr 08/08/25 06:00 IV 08/08/25 23:59 INFUSION KP IV Miscellaneous Supplies 1 each 08/08/25 06:00 Iv Access IV 08/08/25 23:59 DIRECTED KP Sodium Chloride 0 ml 08/08/25 06:00 Normal Saline Flush 10 Ml Syr IV 08/08/25 23:59 PRN PRN Sodium Chloride 0 ml 08/08/25 06:00 Normal Saline 10 Ml Vial IJ 08/08/25 23:59 DIRECTED PRN Sterile Water 0 ml 08/08/25 06:00 Water,Injection,Sterile 10 Ml Vial IJ 08/08/25 23:59 DIRECTED PRN PFSH Active Problems Active Problems: Problem Status Onset Code Endocervical polyp Acute N84.1 Thickened endometrium Acute R93.89 Post-menopausal bleeding Acute N95.0 Bilateral carpal tunnel syndrome Acute G56.03 Hyperlipidemia Acute E78.5 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 Fibromyalgia Acute M79.7 Lumbosacral radiculopathy Acute M54.17 Fibrocystic disease of breast Acute N60.19 Nonulcer dyspepsia Acute K30 GERD (gastroesophageal reflux disease) Chronic K21.9 Lung nodule Acute R91.1 Essential hypertension Acute I10 Anxiety Chronic F41.9 Obesity Chronic E66.9 Medical History Medical History Tension headache Vitamin D deficiency Uterine leiomyoma Surgical History Surgical History Hx of tonsillectomy S/P cholecystectomy History of carpal tunnel surgery of right wrist History of carpal tunnel surgery of left wrist Tobacco Smoking/Tobacco Use Status: Former Tobacco Use Alcohol Alcohol Intake: former Substance Use Substance use: Never Substance use type: does not use Prental History History 3 Para 2 Hx # Term Pregnancies Multiple births Hx # Pregnancies Ectopic pregnancies AB induced Hx Number of Living Children 2 AB spontaneous 1 Vital Signs and Lab Results Vital Signs Most Recent Vital Signs in EMR: Temp Pulse Resp BP Pulse Ox 36.6 C 89 16 132/82 98 08/08/25 10:54 08/08/25 10:54 08/08/25 10:54 08/08/25 10:54 08/08/25 10:54 Lab Results Blood Type / Crossmatch: Antibody Screen NEGATIVE 08/02/25 Complete Blood Count: WBC, (4.4-10.8) 7.77 10^3/uL 08/02/25, 07:47 RBC, (3.93-5.22) 4.88 10^6/uL 08/02/25, 07:47 Hgb, (11.2-15.7) 13.8 g/dL 08/02/25, 07:47 Hct, (36.0-46.0) 41.5 % 08/02/25, 07:47 Plt Count, (130-400) 271 10^3/uL 08/02/25, 07:47 Anesthesia Assessment and Plan Anesthesia History Personal History: No History of Anesthesia Complications Family History: No Family History of Anesthesia Complications Exercise Tolerance Exercise Tolerance: Metabolic Equivalents>4 Pertinent Negatives Pertinent Negatives: No Symptoms of GERD, No Major Cardiovascular Symptoms or Complaints, No Major Pulmonary Symptoms or Complaints and No History of CVA/TIA Cardiac & Pulmonary Exam Cardiac Exam: Normal S1/S2 Heart Sounds Pulmonary Exam: Clear Bilateral Breath Sounds and Active Dry Cough (secondary to ROCIO inhibitor) Implantable Cardiac Device Does patient have a Pacemaker or an ICD?: No Airway Exam Known Difficult Airway: No Mallampati Class: 2 Mouth Opening: Normal (> 3cm) Thyromental Distance: Greater than 3 cm Neck Range of Motion: Full ROM Neck Circumference: Normal Teeth Condition: Normal Dentition and Loose or Chipped (Left front tooth chipped but stable) ASA Classification ASA Score: ASA 2 Emergency Case?: No NPO Status NPO Status: NPO Clears >2 hours, Solids >8 hours Anesthesia Plan Resuscitation Status: Full Code Anesthesia Technique: General Anesthesia Airway Planned: Natural Airway Monitors Used: Standard Monitors Preoperative Comments:: 60 yo for d/c. Sig PMHx: HTN, GERD (omeprazole), fibromyalgia, anxiety, lumbar radiculopathy (resolved with PT) Former smoker.
[2025-08-08 10:54] VITALS: BP 132/82; PULSE 89; RESP 16; TEMP 36.6; O2SAT 98
[2025-08-08] MEDS: Lactated Ringers 1,000 ML 125 ML IV (11:19)
[2025-08-08 11:46] VITALS: BMI 36.7
--- NOTE | 2025-08-08 13:12 | ENDO_PTH ---
PATIENT: Katey Lima LOC: [facility] U#:[id number] AGE/SX: 60/F ROOM: RE08/08/[address]: Aranza Briones DO : 1965 BED: DIS: 08/08/2025 SPEC #: [id number] RECD: 08/08/25 15:49 STATUS: RENUKA RE #: [id number] ARSH: 08/08/25 13:[address]: Aranza Briones DEPT: Surgical Specimen RECD BY: Zoe Castorena ENTERED: 08/08/25 15:49 SP TYPE: Endo OTHR DR: Tosha Villegas Tissues: 1 - ENDOCERVICAL BX/CURRETTE 2 - ENDOMETRIUM BX/CURRETTE Procedures: GROSS AND MICRO LEVEL 4 Comments: [id number]
--- NOTE | 2025-08-08 13:27 | W.PM.OP ---
Operative Note Operative Note PRE-OP DIAGNOSIS: Postmenopausal bleeding, thickened endometrium POST-OP DIAGNOSIS: same Endometrial polyp PROCEDURE: Hysteroscopy, dilation and curettage, endometrial polypectomy. SURGEON: Aranza Briones ANESTHESIA TYPE: General:No Airway Refer to Anesthesia Record ESTIMATED BLOOD LOSS: 5 PATHOLOGY: other (1. Endocervical curettage 2. Endometrial curettage with polyp) COMPLICATIONS: None Patient was transported to: PACU Patient's condition: stable Indications: Postmenopausal bleeding, thickened endometrium Findings: [place] endometrial cavity. Endometrial polyp, freely mobile, removed. Procedure Description: After full informed consent was obtained, patient was taken the operating suite with an IV running. She was placed in dorsal supine position and anesthesia administered. She was then placed in the modified dorsal lithotomy position and prepped and draped in the usual sterile fashion. She had voided prior to presentation to the OR. She received pneumatic compression stockings for DVT prophylaxis. No antibiotic prophylaxis was warranted. A timeout was held. Exam under anesthesia revealed a uterus that was midline and mobile. Speculum was inserted into the vaginal vault and a single-tooth tenaculum used to grasp the anterior lip of the cervix. Cervical os dilated to the point that a 4 mm hysteroscope could be passed without difficulty. With instillation of normal saline and a deficit of 95 cc of normal saline, the endometrial cavity was inspected. There was noted to be a freely mobile endometrial polyp which was narrow based. The remainder of the endometrial and endocervical cavity appeared plush though regular. At this point, the hysteroscope portion was terminated. Endocervical curettage performed. Endometrial curettage to follow with use of a Jose stone polyp forcep to remove the endometrial polyp. At this point, the fractional curettage was complete. Single-tooth tenaculum removed from the anterior lip of the cervix and the puncture sites were noted to be hemostatic. The speculum was then removed and the patient was returned to the dorsal supine position where she awoke from anesthesia with ease. EBL: 5 mL Pathology: 1. Endocervical curettage 2. Endometrial curettage with polyp Fluids: Crystalloid per anesthesia +95 mL of normal saline at hysteroscope Complications: None apparent Findings as above. Date of Procedure: 08/08/25
[2025-08-08 13:29] VITALS: BP 112/59; PULSE 90; RESP 14; TEMP 36.1; O2SAT 97
--- NOTE | 2025-08-08 13:35 | W.ANESPOSTOP ---
Postoperative Evaluation Date, Time and Location Date Performed: 08/08/25 Time Performed: 13:35 Patient Location: Day Surgery Unit Vital Signs Most Recent Imported Vital Signs: Most Recent Vital Signs Temp Pulse Resp BP Pulse Ox 36.6 C 89 16 132/82 98 08/08/25 10:54 08/08/25 10:54 08/08/25 10:54 08/08/25 10:54 08/08/25 10:54 Pain Score Most Recent Pain Score: Most Recent Pain Score Pain Level 0 08/08/25 10:54 Assessment Mental Status: Awake (Alert & Oriented to Patient Baseline) Airway and Respiratory Function: Patent airway with normal (patient baseline) respiratory exam Cardiovascular Function: Hemodynamically Stable Hydration Status: Adequately Hydrated Nausea & Vomiting: No Nausea or Vomiting Pain: Pain is tolerable per patient Peripheral Nerve Block: Patient did not receive a nerve block
[2025-08-08 13:50] VITALS: BP 124/66; PULSE 75; RESP 16; TEMP 36.3; O2SAT 99
== END 2025-08-08 14:22 | disposition home or self-care (01) ==
LOC: SUR 10:28
PROVIDERS: PCP Family Medicine; Visit Provider Obstetrics & Gynecology
PROC: 0UDB8ZZ Extraction of Endometrium, Via Natural or Artificial Opening Endoscopic (ICD-10-PCS; CPT 58558; principal; 2025-08-08 12:00)
DX: N95.0 Postmenopausal bleeding (principal); N84.0 Polyp of corpus uteri; R93.89 Abnormal findings on diagnostic imaging of other specified body structures
CPT/HCPCS: 58558; 88305; J1100; J1885; J2250; J2405; J2704; J3010

== ENCOUNTER 2025-10-12 16:04 | Outpatient (REF) | payer BC, SELFPAY ==
[2025-10-12 21:32] LABS: ESR 18 mm/hr (0-30)
[2025-10-12 21:34] LABS: Abs Immature Grans 0.01 10^3/uL (0.0-0.06); HCT 40.9 % (36.0-46.0); HGB 13.5 g/dL (11.2-15.7); Immature Grans % 0.1 %; MCH 28.1 pg (27.0-33.0); MCHC 33.0 % (32.0-36.0); MCV 85 fL (80-95); MPV 11.9 fL (8.0-11.0); Platelet Count 246 10^3/uL (130-400); RBC 4.80 10^6/uL (3.93-5.22); RDW 13.7 % (11.7-14.6); RDW-SD 42.7 fL; WBC 7.19 10^3/uL (4.4-10.8)
[2025-10-12 21:44] LABS: C-Reactive Protein 0.61 mg/dL (<=0.50)
[2025-10-12 21:47] LABS: ALT 20 U/L (10-49); AST 23 U/L (<34); Albumin 4.3 g/dL (3.2-5.0); Alkaline Phosphatase 87 U/L (46-116); Anion Gap 8.2 mmol/L (3-11); BUN 18 mg/dL (9-23); Bilirubin, Total 0.30 mg/dL (0.2-1.2); CO2 27.8 mmol/L (20.0-31.0); Calcium 9.0 mg/dL (8.3-10.6); Chloride 108 mmol/L (98-107); Glucose 85 mg/dL (74-106); Potassium 4.1 mmol/L (3.5-5.1); Sodium 144 mmol/L (136-145); Total Protein 6.7 g/dL (5.7-8.2)
== END 2025-10-12 16:05 | disposition home or self-care (01) ==
LOC: NCHCN 16:04
PROVIDERS: PCP Family Medicine; Visit Provider Family Medicine
DX: M25.48 Effusion, other site (principal); R60.0 Localized edema
CPT/HCPCS: 80053; 85652; 85025; 86038; 86140; 86431

== ENCOUNTER 2025-10-26 12:29 | Outpatient (REF) | payer BC, SELFPAY ==
[2025-10-26 15:56] LABS: TSH (W/Ref FT4) 1.98 uIU/mL (0.55-4.78)
== END 2025-10-26 12:30 | disposition home or self-care (01) ==
LOC: NCHCN 12:29
PROVIDERS: PCP Family Medicine; Visit Provider Family Medicine
DX: R76.89 Other specified abnormal immunological findings in serum (principal); R63.5 Abnormal weight gain
CPT/HCPCS: 86200; 84443; 86225